=== PATIENT | female | born 1990 | race Caucasian/White ===

== ENCOUNTER 2017-04-06 15:02 | Emergency (ER) | payer OTHER ==
--- NOTE | 2017-04-06 16:30 | UC ---
Abdominal Pain Female HPI - HPI Summary HPI Summary: 26 yo female with the onset of diffuse abd pain last PM this was followed by nausea, vomiting and diarrhea she has had a low grade temp and headache she has had a cough and runny nose as well as mild myalgias ate a "funny tasting taco" yesterday recent trip to [facility] - History of Current Complaint Chief Complaint: UCGI Stated Complaint: VOMITING Time Seen by Provider: 04/06/17 16:29 Hx Obtained From: Patient Hx Last Menstrual Period: 3 wks ago Onset/Duration: Gradual Onset, Lasting Hours Timing: Constant Severity Initially: Moderate Severity Currently: Moderate Pain Intensity: 5 Pain Scale Used: 0-10 Numeric Location: Diffuse Character: Cramping Aggravating Factor(s): Food Alleviating Factor(s): Nothing Associated Signs and Symptoms: Positive: Fever, Cough, Dizzy, Decreased Appetite , Nausea, Vomiting - x3, Diarrhea - x5-6. Negative: Back Pain, Constipation, Blood in Stool, Urinary Symptoms, Vaginal Bleeding, Vaginal Discharge Allergies/Adverse Reactions: Allergies Allergy/AdvReac Type Severity Reaction Status Date / Time No Known Allergies Allergy Verified 04/06/17 15:27 Home Medications: Home Medications Modafinil TAB* [Provigil TAB*] 1 tab PO DAILY 04/06/17 [History Confirmed ] Norgestimate-Ethinyl Estradiol [Mononessa 0.25-35 mg-Mcg] 1 tab PO DAILY [History Confirmed 04/06/17] PARoxetine HCL TAB* [Paxil TAB*] 1 tab PO DAILY 04/06/17 [History Confirmed ] Peppermint Oil [Pepogest] 1 dose PO DAILY 04/06/17 [History Confirmed 04/06/17] Propranolol TAB* [Inderal TAB*] 1 tab PO DAILY 04/06/17 [History Confirmed 04/06] PMH/Surg Hx/FS Hx/Imm Hx Previously Healthy: Yes GI/ History: Other Other GI/ History: gastroparesis and IBS - Surgical History Surgical History: Yes Surgery Procedure, Year, and Place: Cyst on right ovary - Social History Alcohol Use: Occasionally Substance Use Type: Prescribed Smoking Status (MU): Never Smoked Tobacco Review of Systems Constitutional: Fever, Fatigue Skin: Negative Eyes: Negative ENT: Nasal Discharge Respiratory: Cough Cardiovascular: Negative Gastrointestinal: Abdominal Pain, Vomiting, Diarrhea, Nausea Genitourinary: Negative Motor: Negative Neurovascular: Negative Musculoskeletal: Myalgia Neurological: Headache Psychological: Negative Is Patient Immunocompromised?: No All Other Systems Reviewed And Are Negative: Yes Physical Exam Triage Information Reviewed: Yes Appearance: Well-Appearing, No Pain Distress, Well-Nourished Vital Signs: Initial Vital Signs Temp 99.7 F 04/06/17 15:21 Pulse 99 04/06/17 15:21 Resp 18 04/06/17 15:21 BP 107/66 04/06/17 15:21 Pulse Ox 99 04/06/17 15:21 Vital Signs Reviewed: Yes Eyes: Positive: Conjunctiva Clear ENT: Positive: Hearing grossly normal, Nasal congestion, TMs normal, Uvula midline. Negative: Tonsillar swelling, Tonsillar exudate, Trismus, Muffled voice, Hoarse voice, Dental tenderness, Sinus tenderness Neck: Positive: Supple, Nontender, No Lymphadenopathy Respiratory: Positive: Lungs clear, Normal breath sounds, No respiratory distress, No accessory muscle use Cardiovascular: Positive: RRR, No Murmur, Pulses Normal Abdomen Description: Positive: Soft. Negative: Nontender - most tender suprpubically and LLQ, CVA Tenderness (R), CVA Tenderness (L), Distended, Guarding, Hepatomegaly, McBurney's Point Tenderness, Splenomegaly Bowel Sounds: Positive: Present, Hyperactive Neurological: Positive: Alert Psychological Exam: Normal Skin Exam: Normal Re-Evaluation - Re-Evaluation First Eval Re-Evaluation Time: 18:43 Change: Improved - decreased abd pain/no nausea, no vomiting or diarrhea while here Abd Pain Female Course/Dx - Differential Dx/Diagnosis Provider Diagnoses: gastroenteritis. dehydration. ? food poisoning Discharge - Discharge Plan Condition: Stable Disposition: HOME Prescriptions: Ondansetron TAB* [Zofran Tab*] 4 mg PO Q6H PRN #10 tab PRN Reason: Nausea Patient Education Materials: Gastroenteritis (ED), Dehydration (ED) Referrals: No Primary Care Phys,NOPCP [Primary Care Provider] - Additional Instructions: recheck tomorrow if not markedly improved TO ER FOR: increased pain temp >101 worsening vomiting get your ear rechecked in 2 weeks if hearing not back to normal
[2017-04-06] MEDS ORDERED: NS 0.9% 1000 ML* 1,000 ML BOLUS ONE (16:39)
[2017-04-06] MEDS ORDERED: Ondansetron INJ* 2 MG/ML VIAL IV ONE (16:40)
[2017-04-06] MEDS ORDERED: Ketorolac INJ* 30 MG/ML 1 ML VIAL IV ONE (17:51)
[2017-04-06 19:24] VITALS: BP 118/54
== END 2017-04-06 19:08 | disposition home or self-care (01) ==
LOC: UCEAST 15:02
DX: K52.9 Noninfective gastroenteritis and colitis, unspecified (principal); E86.0 Dehydration; R05 Cough; R42 Dizziness and giddiness
CPT/HCPCS: 81003; 81025; 87502; 96360; 96374; 96375; 99202; G0463; J1885; J2405

== ENCOUNTER 2019-04-21 18:27 | Emergency (ER) | payer OTHER ==
--- NOTE | 2019-04-21 18:42 | UC ---
Abdominal Pain Female HPI - HPI Summary HPI Summary: About 30 minutes prior to arrival she had the sudden onset of severe epigastric pain. She comes in clutching her epigastrium and doubled over. She tells me she has a history of gastroparesis and narcolepsy and that pain is almost made her fall asleep. She has a history of epigastric pain but it's never been like this before. She has difficulty describing the pain and reports that there are no exacerbating or relieving factors. She is not nauseated and doesn't appear to have any other associated symptoms. She has an IUD in place. - History of Current Complaint Stated Complaint: ABDOMINAL PAIN Time Seen by Provider: 04/21/19 18:34 Hx Obtained From: Patient Hx Last Menstrual Period: 3 wks ago Onset/Duration: Sudden Onset Timing: Constant Severity Initially: Severe Severity Currently: Severe Location: Epigastric Radiates: No Character: Sharp, Unable to describe Aggravating Factor(s): Nothing Alleviating Factor(s): Nothing Associated Signs and Symptoms: Positive: Negative Allergies/Adverse Reactions: Allergies Allergy/AdvReac Type Severity Reaction Status Date / Time No Known Allergies Allergy Verified 04/06/17 15:27 PMH/Surg Hx/FS Hx/Imm Hx Previously Healthy: Yes GI/ History: Other - Gastroparesis Neurological History: Other - Narcolepsy - Surgical History Surgical History: Yes Surgery Procedure, Year, and Place: Cyst on right ovary - Social History Alcohol Use: Occasionally Substance Use Type: Prescribed Smoking Status (MU): Never Smoked Tobacco Review of Systems All Other Systems Reviewed And Are Negative: Yes Constitutional: Positive: Negative Skin: Positive: Negative Eyes: Positive: Negative ENT: Positive: Negative Gastrointestinal: Positive: Abdominal Pain. Negative: Vomiting, Diarrhea, Nausea Genitourinary: Positive: Negative Neurological: Positive: Other - Feels like she wants to fall asleep Physical Exam - Summary Physical Exam Summary: She was in obvious pain distress. She is nontoxic in appearance however. Triage Information Reviewed: Yes Appearance: Pain Distress Vital Signs Reviewed: Yes ENT Exam: Normal Neck exam: Normal Respiratory Exam: Normal Cardiovascular Exam: Normal Abdominal Exam: Other - She won't lie back on the gurney to allow me to examine her abdomen Neurological Exam: Normal Abd Pain Female Course/Dx - Course Course Of Treatment: She is clearly more than we can handle here. She needs labs and likely imaging. I recommended she go immediately to the emergency department and offered to call an ambulance but they feel that they can drive there safely. She is here with 2 friends one of whom is driving - Differential Dx/Diagnosis Provider Diagnosis: Abdominal pain Discharge ED - Sign-Out/Discharge Documenting (check all that apply): Patient Departure All imaging exams completed and their final reports reviewed: No Studies - Discharge Plan Condition: Stable Disposition: HOME-RECOMMEND TO ED Referrals: No Primary Care Phys,NOPCP [Primary Care Provider] - - Billing Disposition and Condition Condition: STABLE Disposition: Home-Recommend to ED
[2019-04-21 18:46] VITALS: BP 120/69
[2019-04-21] MEDS ORDERED: Ketorolac INJ* 30 MG/ML 1 ML VIAL IM ONE (18:49)
== END 2019-04-21 19:09 | disposition home health service (06) ==
LOC: UCEAST 18:27
DX: R10.9 Unspecified abdominal pain (principal); G47.419 Narcolepsy without cataplexy
CPT/HCPCS: 96372; 99202; G0463; J1885

== ENCOUNTER 2019-04-21 19:26 | Emergency (ER) | payer OTHER ==
--- NOTE | 2019-04-21 23:07 | ED ---
Abdominal Pain/Female - HPI Summary HPI Summary: Patient complains of sudden onset epigastric pain radiating to left shoulder blade starting at 5:45 PM today. Patient went to urgent care, received Toradol which led to improvement in symptoms, however patient was told to come to the ED for further evaluation of abdominal pain. Abdominal pain described as constant, severe, random onset. Pain currently rated 4/10 during history of present illness. Patient denies prior history of same pain. Denies fever, cough, sore throat, CP, SOB, N/V/D, change in urine, change in BM, vaginal symptoms. Medical history is gastroparesis, narcolepsy. Abdominal surgical history is benign cyst tumor removal in 2013. Patient has IUD, irregular periods. - History of Current Complaint Chief Complaint: EDAbdPain Stated Complaint: SEVERE STOMACH/UPPER BACK/CHEST PAIN PER PT Time Seen by Provider: 04/21/19 23:04 Hx Obtained From: Patient Hx Last Menstrual Period: 3 wks ago Onset/Duration: Sudden Onset, Lasting Hours Timing: Constant Severity Initially: Severe Severity Currently: Moderate Pain Intensity: 5 Pain Scale Used: 0-10 Numeric Location: Discrete At: LUQ, Epigastric Radiates to: Back Character: Sharp, Cramping Alleviating Factor(s): Medications Associated Signs and Symptoms: Positive: Negative Allergies/Adverse Reactions: Allergies Allergy/AdvReac Type Severity Reaction Status Date / Time No Known Allergies Allergy Verified 04/21/19 19:46 PMH/Surg Hx/FS Hx/Imm Hx Endocrine/Hematology History: Denies: Hx Anticoagulant Therapy Cardiovascular History: Denies: Hx Pacemaker/ICD History: Denies: Hx Dialysis Sensory History: Denies: Hx Eye Prosthesis Opthamlomology History: Denies: Hx Legally Blind EENT History: Denies: Hx Deafness Neurological History: Denies: Hx Dementia - Surgical History Surgery Procedure, Year, and Place: Cyst on right ovary Infectious Disease History: No Infectious Disease History: Reports: History Other Infectious Disease Denies: Traveled Outside the [place] in Last 30 Days - Family History Known Family History: Positive: Non-Contributory - Social History Alcohol Use: Occasionally Substance Use Type: Reports: Prescribed Smoking Status (MU): Never Smoked Tobacco Review of Systems Constitutional: Negative Eyes: Negative ENT: Negative Cardiovascular: Negative Respiratory: Negative Positive: Abdominal Pain Genitourinary: Negative Musculoskeletal: Negative Skin: Negative Neurological: Negative Psychological: Normal All Other Systems Reviewed And Are Negative: Yes Physical Exam - Summary Physical Exam Summary: Tender epigastrium, left upper quadrant. Abdominal exam otherwise unremarkable. Triage Information Reviewed: Yes Vital Signs On Initial Exam: Initial Vitals Temp Pulse Resp BP Pulse Ox 98.7 F 72 16 102/61 98 04/21/19 19:44 04/21/19 19:44 04/21/19 19:44 04/21/19 19:44 04/21/19 19:44 Vital Signs Reviewed: Yes Appearance: Positive: Well-Appearing Skin: Positive: Warm Head/Face: Positive: Normal Head/Face Inspection Eyes: Positive: Normal Neck: Positive: Supple Respiratory/Lung Sounds: Positive: Clear to Auscultation Cardiovascular: Positive: Normal Abdomen Description: Positive: Other: Musculoskeletal: Positive: Normal Neurological: Positive: Normal Psychiatric: Positive: Normal AVPU Assessment: Alert - [place] Coma Scale Best Eye Response: 4 - Spontaneous Best Motor Response: 6 - Obeys Commands Best Verbal Response: 5 - Oriented Coma Scale Total: 15 Procedures - Sedation Patient Received Moderate/Deep Sedation with Procedure: No Diagnostics - Vital Signs Vital Signs Temp Pulse Resp BP Pulse Ox 04/21/19 19:44 98.7 F 72 16 102/61 98 - Laboratory Result Diagrams: 04/21/19 23:21 04/21/19 22:30 Lab Statement: Any lab studies that have been ordered have been reviewed, and results considered in the medical decision making process. Abdominal Pain Fem Course/Dx - Course Course Of Treatment: Patient complains of sudden onset epigastric pain radiating to left shoulder blade starting at 5:45 PM today. Patient went to urgent care, received Toradol which led to improvement in symptoms, however patient was told to come to the ED for further evaluation of abdominal pain. Abdominal pain described as constant, severe, random onset. Pain currently rated 4/10 during history of present illness. Patient denies prior history of same pain. Denies fever, cough, sore throat, CP, SOB, N/V/D, change in urine, change in BM, vaginal symptoms. Medical history is gastroparesis, narcolepsy. Abdominal surgical history is benign cyst tumor removal in 2013. Patient has IUD, irregular periods. Vital signs within normal limits. Labs unremarkable. Urine negative. Chest x-ray negative. Patient opted to defer abdominal CT at this time. - Diagnoses Provider Diagnoses: Epigastric pain Discharge ED - Sign-Out/Discharge Documenting (check all that apply): Patient Departure - Discharge Plan Condition: Stable Disposition: HOME Prescriptions: Dicyclomine CAP* [Bentyl CAP*] 20 mg PO TID PRN 10 Days #60 cap PRN Reason: Pain Oxycodone HCl 5 mg PO Q8H 2 Days #4 tablet MDD 3 tabs Patient Education Materials: Acute Abdominal Pain (ED) Forms: *School Release Referrals: No Primary Care Phys,NOPCP [Primary Care Provider] - Additional Instructions: Alternate ibuprofen 400 mg with Tylenol 650 mg every 3 hours for abdominal pain. Take Bentyl as directed for abdominal pain. Take oxycodone for breakthrough pain if necessary. Return to the ED for new or worsening symptoms. - Billing Disposition and Condition Condition: STABLE Disposition: Home
[2019-04-21] MEDS ORDERED: Lidocaine 2% VISCOUS* 15 ML UDC PO ONE (23:22)
[2019-04-21] MEDS: Al Hydrox/Mg Hydrox/Simet LIQ* 30 ML UDC PO ONE ×2 (23:33→23:37)
[2019-04-21 23:39] LABS: ABS Basophils 0.1 10^3/ul (0-0.2); ABS Eosinophils 0.1 10^3/ul (0-0.6); ABS Lymphocytes 2.2 10^3/ul (1.0-4.8); ABS Monocytes 0.5 10^3/ul (0-0.8); Hematocrit 43 % (35-47); Hemoglobin 14.6 g/dL (12.0-16.0); Lymphocyte % 37.8 %; Mean Corpuscular HGB Conc 34 g/dL (31-36); Mean Corpuscular Hemoglobin 31 pg (27-31); Mean Corpuscular Volume 89 fL (80-97); Mean Platelet Volume 7.9 fL (7.4-10.4); Nucleated Red Blood Cells % 0.1; Platelet Count 280 10^3/uL (150-450); Red Blood Count 4.77 10^6 /uL (3.70-4.87); Red Cell Distribution Width 13 % (10-15); White Blood Count 5.8 10^3/uL (3.5-10.8)
[2019-04-21 23:52] LABS: ALT 9 U/L (7-52); Albumin 4.5 g/dL (3.2-5.2); Albumin/Globulin Ratio 1.4 (1-3); Alkaline Phosphatase 94 U/L (34-104); BUN/Creatinine Ratio 12.8 (8-20); Blood Urea Nitrogen 10 mg/dL (6-24); C Reactive Protein < 1.00 mg/L (<8.01); CO2 Carbon Dioxide 28 mmol/L (22-32); Calcium 9.4 mg/dL (8.6-10.3); Chloride 102 mmol/L (101-111); EGFR African American 106.4 (>60); EGFR Non-African American 87.9 (>60); Globulin 3.2 g/dL (2-4); Glucose 90 mg/dL (70-100); Sodium 136 mmol/L (135-145); Total Protein 7.7 g/dL (6.4-8.9)
[2019-04-21 23:59] LABS: HCG Pregnancy < 0.60 mIU/mL
[2019-04-22 00:15] LABS: Anion Gap 6 mmol/L (2-11); Potassium 4.3 mmol/L (3.5-5.0)
[2019-04-22 00:20] LABS: AST 17 U/L (13-39)
[2019-04-22] MEDS ORDERED: Dicyclomine CAP* 10 MG PO ONE (01:15)
[2019-04-22] MEDS ORDERED: Acetaminophen TAB* 325 MG PO ONE (01:15)
[2019-04-22 02:19] VITALS: BP 128/68
== END 2019-04-22 02:00 | disposition home or self-care (01) ==
LOC: ED 19:26
DX: R10.13 Epigastric pain (principal); R10.12 Left upper quadrant pain; R07.89 Other chest pain; Z97.5 Presence of (intrauterine) contraceptive device
CPT/HCPCS: 36415; 71046; 80053; 83605; 83690; 84484; 84702; 85025; 86140; 93005; 99283; A9270-GY